=== PATIENT | male | born 1970 | race Caucasian/White ===

== ENCOUNTER 2025-04-30 12:11 | Emergency (ER) | payer BC, SELFPAY ==
[2025-04-30 12:14] VITALS: BP 103/55
--- NOTE | 2025-04-30 14:31 | ED.GENMED ---
History of Present Illness
General
Chief Complaint: Gait Dysfunction
Source: patient
Exam Limitations: none
Time Seen by Provider: 04/30/25 13:39
Nursing documentation reviewed up to this point in time: agreed with
History of Present Illness
History of Present Illness:
As documented patient is a 54-year-old male with past medical history of NIDDM, fatigue joint pain, bipolar disorder, AL stent presents to the ER for evaluation. Since February he has had balance issues and noticed he had right foot drop. He saw his
family Dr. Reddy who recommended he see a neurologist. He saw a neurologist and was diagnosed with peroneal nerve injury and scheduled for an MRI May 09. He has had some chronic joint pain which is not necessarily new for him and his family doctor
recently told him that his rheumatological labs were abnormal. He has not yet seen rheumatology. He is also does notice some discoloration to both of his legs and at times feels that his right leg is more swollen than his left and was concerned
for DVT which is what prompted him to come to the ED.
Patient's medicines include atorvastatin diazepam Ezetimibe levothyroxine lisinopril metformin metoprolol nitroglycerin as needed oxcarbazepine Ozempic Prasugrel Seroquel, testosterone zolpidem
Past History
Past History
ED Past Medical History: GERD, HTN, Hypercholesterolemia, NIDDM, AL, Hypothyroidism (sleep apnea; RA), Psychiatric (Bipolar, Anxiety, Depression) and Other (Sleep apnea, RA)
ED Past Surgical History: Cardiac (stent X 2 )
Social History
Tobacco: Non-smoker
Alcohol: None
Personal:
Living: with family
Review of Systems
Review of Systems
Allergies reviewed?: Yes
All Other Systems: ROS reviewed and negative except as documented in HPI and ROS
Constitutional: Reports no symptoms; Denies fever, fatigue or chills
EENT: Reports no symptoms
Respiratory: Reports no symptoms; Denies trouble breathing
Cardiac: Reports no symptoms
ABD/GI: Reports no symptoms
Skin: Reports other ( areas of discoloration to b/l lower legs , no obvious swelling )
Neurological: Reports other (right foot drop since February )
Psychiatric: Reports no symptoms
Phy Exam
General Physical Exam
General Presentation: no apparent distress
General age: appears stated age
General Skin: warm and dry
General Habitus: normal
General Mental: alert
General Hydration: appears well hydrated
Cardiovascular Exam
Cardiovascular Exam: regular rate/rhythm, no murmur and normal peripheral pulses
Pulmonary Exam
Pulmonary Exam: lungs clear and no respiratory distress
Neurological Exam
Neurological Exam: alert, oriented x3 and other (decreased ability to dorsiflex right foot, slight decreased sensation to right l/e )
Musculoskeletal Exam
Musculoskeletal Exam: other (Bilateral extremities with strong pulses no erythema no obvious swelling scattered areas of slight bruising discoloration to b/l lower legs)
Skin Exam
Skin Exam: normal color and warm/dry
Psychiatric Exam
Psychiatric Exam: normal mood/affect
Course
Orders/Labs/Results
Orders:
Orders
04/30/25 14:25
Venous Doppler Lwr Ext Bilat [ Periph Venous LOWER Ext Tommy] Stat
Comment:
Reason For Exam: swelling
04/30/25 14:53
Complete Blood Count/With Diff Urgent
Comprehensive Metabolic Panel Urgent
Free T4 Urgent
TSH Reflex To Free T4 Urgent
04/30/25 16:55
Apixaban [Eliquis] 10 mg PO NOW STA
Abnormal Lab Results
04/30/25
14:53
RBC 4.27 L 10^6/uL
(4.70-6.10)
MCH 34.2 H pg
(27.0-31.0)
MCHC 37.2 H g/dL
(33.0-37.0)
BUN 21 H mg/dl
(9-20)
TSH (Reflex) 0.22 L uIU/ml
(0.47-4.68)
04/30/25 14:53
04/30/25 14:53
Vital Signs
Initial and Last Documented VS:
Initial Vital Signs
Temp Pulse Resp BP Pulse Ox
98 F 76 16 103/55 100
04/30/25 12:14 04/30/25 12:14 04/30/25 12:14 04/30/25 12:14 04/30/25 12:14
Last Documented Vital Signs
Temp Pulse Resp BP Pulse Ox
98 F 76 16 106/70 100
04/30/25 12:14 04/30/25 12:14 04/30/25 12:14 04/30/25 15:00 04/30/25 12:14
MDM/Problems Addressed
MDM/Problems Addressed:
As documented patient is a 54-year-old male who has been diagnosed with possible peroneal nerve injury in his right lower extremity. He has had balance issues related to right foot drop. He was seen by family doctor and neurology and is scheduled
for an MRI of his lumbar spine in the next several weeks. He also has had some abnormal rheumatological labs that were ordered by his family doctor. He today he noticed some discoloration to both of his lower extremities and was concerned which
brought him here. On exam there is no obvious swelling he does have mild what appears to be ecchymosis to both of his legs in different areas. He has strong pulses. He does have decreased dorsiflexion of the right leg and slight decrease
sensation. Again the symptoms are since February because of this and he is having difficulty walking and therefore is not as mobile as he normally is. Ultrasounds today were done of bilateral lower extremities and ultrasound shows a nonocclusive
thrombus in left popliteal vein. Patient has a normal white count no fevers stable hemoglobin normal platelets, unremarkable chemistries normal T4
Case discussed ED physician will treat with anticoagulation for newly diagnosed DVT. Patient has a neurologist who is evaluating his foot drop and is scheduled for an MRI in April he also is working with his family doctor and will need to follow-up
with rheumatology. His family doctor is aware of his previous issues since February.
He is stable for discharge home but will need outpatient follow-up
*Critical Care Note
Total Time (30-74mins, 75-104mins- exclusive of procedures): Not Applicable
ED Attending Note
-
Portions of this chart may have been created with voice recognition software.� Occasional wrong word or��sound alike� substitutions may have occurred due to the inherent limitations of voice recognition software.
Discharge Plan
Departure
Patient Disposition: Home (Routine Discharge)
Date of Disposition: 04/30/25
Time of Disposition: 16:54
Patient with high blood pressure during this ER visit?: No
Covid-19: Not Applicable
Discharge Problem:
DVT (deep venous thrombosis)
Instructions: Deep vein thrombosis (DVT) - ED discharge instructions
Prescriptions:
New
Eliquis DVT-PE Treat 30D Start 5 mg (74 tabs) tablets,dose pack
See Rx Instructions .ROUTE .COMPLEX Qty: 74 0RF
Rx Instructions:
10 mg twice a day for 7 days followed by 5 mg twice daily
No Action
levothyroxine [Synthroid] 100 MCG tablet
100 mcg PO DAILY
hydroxychloroquine 200 MG tablet
200 mg PO BID
eszopiclone [Lunesta] 3 MG tablet
3 mg PO HS
testosterone [AndroGel] 2.5 GM gel in packet
20.25 mg topical DAILY
Patient Comments:
apply to upper arm and shoulder
aspirin 325 MG tablet
325 mg PO DAILY
clonazepam 2 MG tablet
2 mg PO DAILY
methotrexate sodium 2.5 MG tablet
150 mg PO WEEKLY
risperidone 1 MG tablet
1 mg PO DAILY
bupropion HCl [Wellbutrin XL] 300 MG tablet extended release 24 hr
300 mg PO DAILY
meloxicam 7.5 MG tablet
7.5 mg PO DAILY
Patient Comments:
instructed not to take anymore due to possible stent pacement
oxycodone-acetaminophen [Percocet] 5-325 mg tablet
1 tab PO Q4HPRN PRN (Reason: pain) Qty: 10 0RF
gabapentin [Neurontin] 300 mg capsule
300 mg PO BID Qty: 20 0RF
prednisone 10 mg Tablet
See Rx Instructions .ROUTE .COMPLEX Qty: 30 0RF
Rx Instructions:
Take By Mouth:
40 mg daily x3 days, 30 mg daily x3 days,
20 mg daily x3 days, 10 mg daily x3 days.
Referrals:
Brit Chun MD [Active, Rheumatology]
UNKNOWN - PT DOES,NOT KNOW [Family Provider]
Activity Restrictions/Additional Instructions:
As discussed you have a nonocclusive thrombus in the left popliteal vein and will need to start anticoagulation. You were given the first dose of Eliquis here in the ER. A prescription was sent to your pharmacist.
Starting tomorrow take 10 mg twice daily for 7 days followed by 5 mg twice daily
Closely follow-up with your family doctor(call tomorrow to make an appointment soon as possible) for reevaluation of your symptoms including newly diagnosed DVT and other rheumatological issues. Please follow-up as scheduled with neurology for
reevaluation and for your MRI. Please see information for referral information for rheumatology please call to make an appointment as soon as possible
Return if any worsening of symptoms including increased swelling shortness of breath or any further concerns.
Interventions
Interventions:
*Risk Screen - Suicide Last Done: 04/30/25 12:14
*General Assessment Last Done: 04/30/25 14:52
*Neglect/Abuse Screening Last Done: 04/30/25 12:14
*ED- Fall Risk Assessment Last Done: 04/30/25 14:52
*ED COVID-19 Vaccine History Last Done: 04/30/25 14:52
ED- Neurological Assessment Last Done: 04/30/25 14:52
ED-Musculoskeletal Assessment Last Done: 04/30/25 14:52
ED Swallowing Screen Last Done: 04/30/25 14:52
Discharge Date and Time
Discharge Date/Time: 04/30/25 17:16
Print Language: ARMENIAN
[2025-04-30 15:00] VITALS: BP 106/70
[2025-04-30 15:09] LABS: % Basophils 1.1 % (0-2); % Eosinophils 3.7 % (0-6); % Immature Granulocytes 0.1 % (0-0.5); % Lymphocytes 24.9 % (20.5-51.1); % Neutrophils 63.2 % (42.2-75.2); Absolute Basophils 0.1 10^3/uL (0-0.2); Absolute Eosinophils 0.3 10^3/uL (0-0.7); Absolute Lymphocytes 1.8 10^3/uL (1.2-3.4); Absolute Monocytes 0.5 10^3/uL (0.1-0.6); Absolute Neutrophils 4.5 10^3/uL (1.4-6.5); Hematocrit 39.2 % (39.0-52.0); Hemoglobin 14.6 g/dL (13.0-18.0); Mean Corp Hgb Conc. 37.2 g/dL (33.0-37.0); Mean Corpuscular Hgb 34.2 pg (27.0-31.0); Mean Corpuscular Volume 91.8 fL (80.0-94.0); Mean Platelet Volume 9.7 fL (7.4-10.4); Nucleated Red Blood Cells % 0 % (-); Platelet Count 174 10^3/uL (130-400); Red Blood Cell Count 4.27 10^6/uL (4.70-6.10); White Blood Cell Count 7.1 10^3/uL (4.8-10.8)
[2025-04-30 15:30] LABS: ALT (SGPT) 19 U/L (0-50); AST (SGOT) 20 U/L (17-59); Albumin 4.6 g/dl (3.5-5.0); Alkaline Phosphatase 52 U/L (38-126); Blood Urea Nitrogen 21 mg/dl (9-20); Calcium 10.1 mg/dl (8.4-10.2); Carbon Dioxide 30 mmol/L (22-30); Chloride 105 mmol/L (98-107); Glucose 96 mg/dl (70-99); Potassium 4.4 mmol/L (3.5-5.1); Sodium 144 mmol/L (135-145); Total Bilirubin 0.7 mg/dl (0.2-1.3); eGFR > 60.00
[2025-04-30 16:00] LABS: TSH Reflex To Free T4 0.22 uIU/ml (0.47-4.68)
[2025-04-30 16:32] LABS: Free T4 1.58 ng/dl (0.78-2.19)
[2025-04-30] MEDS: ELIQUIS 10 MG PO (17:01)
== END 2025-04-30 17:16 | disposition home or self-care (01) ==
LOC: EMR 12:11
PROVIDERS: Nurse Practitioner; EMERGENCY PHYSICIAN Emergency Medicine
DX: I82.432 Acute embolism and thrombosis of left popliteal vein (principal); E11.9 Type 2 diabetes mellitus without complications; Z95.5 Presence of coronary angioplasty implant and graft
CPT/HCPCS: 99285; 80053; 84439; 84443; 85025; 93970